=== PATIENT | female | born 1990 | race Caucasian/White ===

== ENCOUNTER 2023-10-29 13:11 | Inpatient (IN) | payer BC, SELFPAY ==
[2023-10-29] VITALS (28 sets, daily range): BP systolic 97–147; BP diastolic 57–95; PULSE 63–107; RESP 16; TEMP 36.8–36.9; O2SAT 96–99; BMI 34.3
--- NOTE | 2023-10-29 13:33 | PM.OBHPAP1 ---
OB - H&P; HPI Antepartum History of Present Illness Time Seen by Provider: 13:34 Date Seen: 10/29/23 Chief complaint: Postdates 41.1 weeks Narrative: Romy Willard is a 33 year old female who presents for post-dates induction of labor. History of Present Dating criteria: based on LMP (consistent with 8 week ultrasound) care: good care Ultrasounds: normal 1st trimester US and normal mid trimester US
--- NOTE | 2023-10-29 13:40 | PM.OBHPLI ---
OB - H&P: HPI Labor/Induction History of Present Illness Time Seen by Provider: 13:40 Date Seen: 10/29/23 Chief Complaint: The patient is a 33 year old 2 para 1 at 41 weeks gestation by LMP and consistent with 8 week ultrasound, who presents with IOL for postdates. Chief complaint: Postdates 41.1 weeks : 2 Para: 1 Date of last menstrual period: 01/15/23 Estimated date of delivery: 10/22/23 Gestational age based on last menstrual period: 41 Narrative: Romy Willard is a 33 year old female who presents for IOL for postdates. She is 41 weeks gestation. She has felt well. No concerns. Handy score last week was 6 3cm/50%/-2/soft/posterior History of Present Dating criteria: based on LMP (consistent with 8 week ultrasound) care: good care Ultrasounds: normal 1st trimester US and normal mid trimester US (did have repeat ultrasound for visualization of spine) Medical complications: none Labs Blood type: O (+) positive Rubella: immune RPR/VDLR: nonreactive GBS status: negative HBsAG: negative Review of Systems Status of ROS: Reports: 10 or more systems reviewed and unremarkable except as noted in History and below OB - H&P: Exam Physical Exam: Vital signs: Pulse BP 87 118/76 10/29/23 13:37 10/29/23 13:37 Constitutional: Constitutional: no acute distress Routine HEENT Exam: Head: Present atraumatic and normal inspection ENT: Present mucous membranes moist Routine Neck Exam: Neck: Present full ROM Detailed Neck Exam: Thyroids: Thyroid: Present normal Routine Chest/Breast/Axilla Exam: Chest wall: Absent tenderness Routine Respiratory Exam: Respiratory: Present CTA bilaterally; Absent crackles or rales Routine Cardiovascular Exam: Cardiovascular: RRR, S1 and S2 Detailed Labor and Delivery Exam: Patient Gravid: Yes Cervical ripeness score: 6 Fetus (Single): Amniotic Membrane Status: intact Heart Rate Baseline: 135 Monitor Accelerations: Present Monitor Decelerations: None 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 Handy score 6, will proceed with pitocin/AROM if needed. Status: Acute Plan - anticipate - Desires epidural, may receive as desired. - Planning bottle feeding - Baby MD: Kenji Delivery/Labor/Induction Plan Plan: induction Induction method: per pitocin protocol
[2023-10-29 14:10] LABS: Basophils Absolute Auto 0.02 K/uL (0.00-0.30); Basophils Percent Auto 0.3 % (0.0-3.0); Eosinophils Absolute Auto 0.11 K/uL (0.00-0.50); Eosinophils Percent Auto 1.6 % (0.0-7.0); Hematocrit 34.4 % (33.0-51.0); Hemoglobin* 11.5 gm/dL (12.0-16.0); Immature Granulocytes Abs Auto 0.04 K/uL (0.00-0.30); Immature Granulocytes Pct Auto 0.6 %; Lymphocytes Percent Auto 16.5 % (20-44); Mean Corpuscular HGB Conc 33 gm/dL (32-36); Mean Corpuscular Hemoglobin 26 pg (26-34); Mean Corpuscular Volume 78 fL (80-100); Monocytes Percent Auto 8.2 % (0.0-11.0); Neutrophils Percent Auto 72.8 % (42.0-72.0); Platelet Count* 241 K/uL (140-440); RDW Coefficient of Variation % 14.2 % (11.5-15.5); Red Blood Count 4.42 m/uL (4.00-5.20); White Blood Count* 6.93 K/uL (4.50-11.00)
[2023-10-29 14:11] LABS: Slide Review Reflex No
[2023-10-29] MEDS: OXYTOCIN 30 unit/500 ML in NS 30 UNIT/500 ML BAG IVPB ×2 (14:47→15:03)
[2023-10-29] MEDS: LACTATED RINGERS 1000 ML 1,000 ML 125 ML IV ×2 (14:47→21:34)
--- NOTE | 2023-10-29 19:48 | PM.OBPNL ---
Subjective Time Seen by Provider: 19:48 Date Seen: 10/29/23 Narrative: Patient is having more contractions, uncomfortable, but not painful. 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
[2023-10-29] MEDS: LIDOCAINE 2% (PF) 5 ML VIAL EPIDURAL (20:44)
[2023-10-29] MEDS: ROPIVACAINE 0.2% 100 ml 100 ML 12 MG EPIDURAL (20:44)
--- NOTE | 2023-10-29 20:52 | P.ANBPRC_ITS ---
PFSH PFSH Social History What is your current living situation?: I presently have a place to live Problems where you live: no known problems In the past 12 months, utilities in danger of being shut off: no In past 12 months, lack of transportation kept you from medical appts, meetings, work, or getting things needed for daily living: no In the past 12 mos, have been you worried that your food would run out before you had money to buy more?: never true In the past 12 mos, the food you bought just didn't last and you didn't have money to buy more?: never true Smoking Status: Never smoker How often does anyone, including family, friends and others, physically hurt you : never How often does anyone, including family, friends and others, insult or talk down to you: never How often does anyone, including family, friends and others, threaten you with harm: never How often does anyone, including family, friends and others, scream or curse at you: never Meds Home Medications and Allergies Home Medications Medication Instructions Recorded Confirmed Type loratadine-pseudoephedrine ER 10 1 tab PO DAILY 10/29/23 10/29/23 History mg-240 mg tablet,extended [id number] (Claritin-D 24 Hour) omeprazole 20 mg capsule,delayed 20 mg PO DAILY 10/29/23 10/29/23 History release 17-iron(35 mg-5 mg)-folic cap PO 10/29/23 History acid 1.2 mg-fish oil 400 mg capsule Allergies Allergy/AdvReac Type Severity Reaction Status Date / Time No Known Drug Allergies Allergy Verified 10/29/23 14:43 Results Labs Labs: Laboratory Results - last 24 hr 10/29/23 14:02 WBC 6.93 RBC 4.42 Hgb 11.5 L Hct 34.4 MCV 78 L MCH 26 MCHC 33 RDW Coeff of Rafat 14.2 Plt Count 241 Neut % (Auto) 72.8 H Lymph % (Auto) 16.5 L [place] % (Auto) 8.2 Eos % (Auto) 1.6 Baso % (Auto) 0.3 Neut # (Auto) 5.00 Lymph # (Auto) 1.10 [place] # (Auto) 0.60 Eos # (Auto) 0.11 Baso # (Auto) 0.02 Abs Immat Gran (auto) 0.04 Imm/Tot Granulo (auto) 0.6 Blood Type O Positive Antibody Screen NEGATIVE Vital Signs Vital Signs: Last Vital Signs Temp 98.3 F 10/29/23 19:45 Pulse 93 10/29/23 20:49 Resp 16 10/29/23 19:45 BP 136/72 10/29/23 20:49 Pulse Ox 96 10/29/23 20:46 Weight: 87.997 kg Height: 160.02 cm Anesthesia Procedures Epidural Insertion Patient Location: OB Start Time: 20:20 Stop Time: 20:52 Start Date: 10/29/23 Stop Date: 10/29/23 Reason for Block: procedure for pain Patient Position: sitting Performed By: Tom Gonzalez Preanesthetic Checklist: IV checked, risks and benefits discussed, surgical consent, monitors and equipment checked, pre-op evaluation, timeout performed and anesthesia consent Prep: chlorhexidine gluconate Monitoring: blood pressure monitoring, continuous pulse oximetry and heart rate Approach: midline Vertebral Space: lumbar (1-5) Epidural Technique: MIGUEL ANGEL air Needle Type: Tuohy needle Injection Technique: continuous catheter Needle gauge: 17 Needle Length (cm): 10 cm Needle Insertion Depth (cm): 7 Catheter Gauge: 19 Catheter Type: multi-orifice Catheter at skin depth (cm): 13 Test Dose Result: negative and lidocaine 1.5% with epinephrine 1 to 200,000
--- NOTE | 2023-10-29 20:54 | PM.OBPNL ---
Subjective Time Seen by Provider: 20:54 Date Seen: 10/29/23 Narrative: Patient is very uncomfortable after AROM. Objective Exam: very uncomfortable with contractions. 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
--- NOTE | 2023-10-29 22:41 | PM.OBPNL ---
Subjective Time Seen by Provider: 22:41 Date Seen: 10/29/23 Narrative: Feeling more shaky and more pelvic pressure Objective Vital Signs: Last Vital Signs Temp 98.4 F 10/29/23 22:33 Pulse 100 10/29/23 22:37 Resp 16 10/29/23 22:33 BP 112/71 10/29/23 22:37 Pulse Ox 96 10/29/23 20:46 Pelvic Exam Dilation (cm): 8-9 Effacement (%): 90 Station: 0 Contractions Monitor mode: External Contraction Frequency: 3-4 Contraction pattern: Regular Contraction intensity: Strong/Firm Pitocin Rate (mU/min): 2 Assessment Assessment: active labor Station: 0 Amniotic Membrane Status: AROM (clear fluid) Status: Category l Heart Rate Baseline: 135 [facility] Variability: Moderate (6-25) Monitor Accelerations: Present Monitor Decelerations: None Labor Progress: progressing well Plan Plan: - ongoing IOL - anticipate
[2023-10-29] MEDS: LIDOCAINE 1 % PF 30 ML INJECTION (23:45)
[2023-10-30] VITALS (22 sets, daily range): BP systolic 110–166; BP diastolic 66–84; PULSE 65–92; RESP 15–18; TEMP 36.4–37.1; O2SAT 95–99
--- NOTE | 2023-10-30 00:01 | W.PM.OBVAGDE ---
OB Procedure Vag Delivery Mother Details Mother Details: The patient is a 33 year-old, 2, Para 1 admitted on 10/29/23 at 41.0 Days gestation. : 2 Para: 1 Weeks Gestation: 41.0 Admission Date: 10/29/23 Additional Details Amniotic Membrane Status: AROM Amniotic Membrane Rupture Date: 10/29/23 Amniotic Membrane Rupture Time: 19:41 Amniotic Membrane Fluid Description: Clear Analgesia/Anesthesia Type: Epidural Waterbirth: No Pitcoin: Yes Intrapartal Events: Labor Induction Induction Method: per pitocin protocol and AROM Labor Onset: 19:45 Complete: 23:18 Pushin:24 Heart: heart tones during second stage were category 1. Did have bradycardia to 90 in last 2 pushes Delivery Details Delivery Date: 10/29/23 Delivery Time: 23:35 Route of delivery: Infant Gender: Male Infant Viability: Alive; Heart Rate Present Position at Delivery: OA Delivery Details: Patient was admitted for IOL for postdates. Pitocin was started and patient progressed to regular contractions. AROM of clear fluid was performed. Patient's labor occurred shortly thereafter and she requested epidural. She had good response from Epidural. Patient progressed well becoming complete at 2318. Began pushing and pushed very efficiently. Delivered over intact perineum via spontaneous vaginal delivery. was placed on maternal abdomen.? Cord was clamped and cut after a 30 second delay by father of baby who was in attendance. Nose and mouth were bulb suctioned.? Infant weight pending. 1 Minute Interval Total Score: 8 5 Minute Interval Total Score: 9 Additional Details Shoulder Dystocia: No Placenta Delivery Time: 23:43 Placental Delivery Description: Spontaneous Delivery repair: Vicryl Procedure Done: Global Blood Loss: 100 Laceration: Perineal - 2nd Degree Episiotomy Description: None Blood Loss Measurement Type: QBL Bakri Used: No Sponge/Need Count Correct: Yes Cord Vessel Description: 3 Vessels Event Summary Status: Mother and were stable after delivery. Disposition: no change
--- NOTE | 2023-10-30 00:37 | P.OBPN_ITS ---
OB - PN:Subj Subjective Time Seen by Provider: 00:37 Date Seen: 10/30/23 Interval history: Patient feels well. Patient comments OB post-: no complaints and pain well controlled [place] status: bottle OB - PN: Obj Exam Physical Exam: Vital signs: Temp Pulse Resp BP Pulse Ox 98.4 F 77 16 120/66 96 10/29/23 22:33 10/30/23 00:30 10/29/23 22:33 10/30/23 00:30 10/29/23 20:46 Constitutional: Constitutional: no acute distress Routine HEENT Exam: Head: Present atraumatic Routine Abdominal Exam: Fundus: Present firm Routine Exam: External: Present swelling Routine Extremities Exam: Extremities: Absent calf tenderness Routine Back/Spine/Pelvis Exam: Back/Spine: Present full ROM Routine Neurological Exam: Neurological: Present alert and oriented X3 Routine Psychiatric Exam: Psychiatric: Present normal affect OB - PN: Obj Data Labs Labs: Laboratory Results - last 24 hr 10/29/23 14:02 WBC 6.93 RBC 4.42 Hgb 11.5 L Hct 34.4 MCV 78 L MCH 26 MCHC 33 RDW Coeff of Rafat 14.2 Plt Count 241 Neut % (Auto) 72.8 H Lymph % (Auto) 16.5 L [place] % (Auto) 8.2 Eos % (Auto) 1.6 Baso % (Auto) 0.3 Neut # (Auto) 5.00 Lymph # (Auto) 1.10 [place] # (Auto) 0.60 Eos # (Auto) 0.11 Baso # (Auto) 0.02 Abs Immat Gran (auto) 0.04 Imm/Tot Granulo (auto) 0.6 Blood Type O Positive Antibody Screen NEGATIVE OB - PN: A/P Delivery Assessment and Plan (1) Post-dates : Problem details: Induced for postdates Status: Acute (2) (normal spontaneous vaginal delivery): Problem details: Had after IOL Status: Acute Plan - Had 2 elevated BPs in setting of shaking prior to delivery. Nursing feels these were not accurate (immediate recheck were within normal limits). None of the readings were treatable (both just over 140/90). Will monitor. If another bp >140/90 will call and do labs. NO symptoms of preeclampsia. Doing well. Plan day: 1 Plan: routine care
[2023-10-30] MEDS: IBUPROFEN 600 MG TABLET PO ×3 (00:43→21:25)
[2023-10-30 05:27] LABS: Basophils Percent Auto 0.1 % (0.0-3.0); Eosinophils Percent Auto 0.1 % (0.0-7.0); Hematocrit 32.9 % (33.0-51.0); Hemoglobin* 10.9 gm/dL (12.0-16.0); Immature Granulocytes Pct Auto 0.3 %; Lymphocytes Percent Auto 7.7 % (20-44); Mean Corpuscular HGB Conc 33 gm/dL (32-36); Mean Corpuscular Hemoglobin 26 pg (26-34); Mean Corpuscular Volume 78 fL (80-100); Monocytes Percent Auto 8.1 % (0.0-11.0); Neutrophils Percent Auto 83.7 % (42.0-72.0); Platelet Count* 222 K/uL (140-440); RDW Coefficient of Variation % 14.3 % (11.5-15.5); Red Blood Count 4.21 m/uL (4.00-5.20); White Blood Count* 13.83 K/uL (4.50-11.00)
[2023-10-30 05:34] LABS: Slide Review Reflex No
[2023-10-30 05:42] LABS: Aspartate Amino Transferase* 61 U/L (12-35)
[2023-10-30 05:43] LABS: Alanine Aminotransferase* 17 U/L (4-35); Blood Urea Nitrogen* 13 mg/dL (5-24)
[2023-10-30 05:57] LABS: Creatine Kinase* 198 U/L (41-117)
[2023-10-30] MEDS: ACETAMINOPHEN 500 MG TABLET 1000 MG PO (06:17)
[2023-10-30 07:18] LABS: Creatinine* 0.7 mg/dL (0.5-1.5); Est. Creatinine Clearance* 95.44; Estimated Glomerular Filt Rate 118 ml/min
--- NOTE | 2023-10-30 07:30 | PM.OBPNVD1 ---
OB - PN:Subj Subjective Time Seen by Provider: 07:00 Date Seen: 10/30/23 Interval history: Patient feels well. Had at 1135pm last night. Reports she is ambulating, voiding and stooling without difficulty. Lochia mild. No concerns. Bottlefeeding. No headache or vision changes. pt denies pain. Patient comments OB post-: no complaints and tolerating diet [place] infant status: bottle OB - PN: Obj Exam Physical Exam: Vital signs: Temp Pulse Resp BP Pulse Ox O2 Del Method 98.3 F 83 17 125/80 96 Room Air 10/30/23 06:10 10/30/23 06:10 10/30/23 06:10 10/30/23 06:10 10/29/23 20:46 10/30/23 06:10 Constitutional: Constitutional: no acute distress and cooperative Routine HEENT Exam: Head: Present normal inspection Eye: Present normal appearance ENT: Present mucous membranes moist Routine Abdominal Exam: Fundus: Present firm (at umbilicus) Routine Neurological Exam: Neurological: Present alert Routine Psychiatric Exam: Psychiatric: Present normal affect, normal thought process and good insight OB - PN: Obj Data Labs Labs: Laboratory Results - last 24 hr 10/29/23 10/30/23 14:02 05:20 WBC 6.93 13.83 H RBC 4.42 4.21 Hgb 11.5 L 10.9 L Hct 34.4 32.9 L MCV 78 L 78 L MCH 26 26 MCHC 33 33 RDW Coeff of Rafat 14.2 14.3 Plt Count 241 222 Neut % (Auto) 72.8 H 83.7 H Lymph % (Auto) 16.5 L 7.7 L [place] % (Auto) 8.2 8.1 Eos % (Auto) 1.6 0.1 Baso % (Auto) 0.3 0.1 Neut # (Auto) 5.00 11.60 H Lymph # (Auto) 1.10 1.10 [place] # (Auto) 0.60 1.10 H Eos # (Auto) 0.11 0.00 Baso # (Auto) 0.02 0.00 Abs Immat Gran (auto) 0.04 0.00 Imm/Tot Granulo (auto) 0.6 0.3 BUN 13 Creatinine 0.7 Estimated Creat Clear 95.44 Estimated GFR 118 AST 61 H ALT 17 Total Creatine Kinase 198 H Blood Type O Positive Antibody Screen NEGATIVE OB - PN: A/P Delivery Assessment and Plan (1) Post-dates : Problem details: Induced for postdates Status: Acute (2) (normal spontaneous vaginal delivery): Problem details: Had after IOL Status: Acute (3) Elevated blood pressure reading: Problem details: BP 2551=303/61 just before epidural, recheck 137/83. Shortly after delivery when shaking bp cuff 166/77, repeated 1 min later 135/74 so initial though inaccurate due to shaking. 10/30/23 0200 146/78 Status: Acute Assessment and Plan: Technically 2 elevated bp's as above (disregard 166 as inaccurate) and first elevated bp was right before epidural. Most recent improved. Plan to monitor bp closely. Initial PIH labs with AST 61 just below double limit normal. Pt feels well and asymptomatic. Plan repeat labs 6 hours from initial PIH labs. Discussed with pt next steps depend on how she is feeling, bp and lab followup. All ?'s answered. (4) Elevated AST (SGOT): Status: Acute Assessment and Plan: see above
--- NOTE | 2023-10-30 10:12 | PM.ANPOST ---
Post Anesthesia Note Post Anesthesia Note Patient seen: Inpatient Respiratory Status: adequate Cardiovascular Status: adequate Mental Status: baseline Pain: adequate Temp: baseline Anesthetic awareness: N/A Complications: none Follow care: none
[2023-10-30 11:53] LABS: Platelet Count* 241 K/uL (140-440)
[2023-10-30 12:09] LABS: Alanine Aminotransferase* 17 U/L (4-35); Aspartate Amino Transferase* 76 U/L (12-35); Creatinine* 0.7 mg/dL (0.5-1.5); Est. Creatinine Clearance* 95.44; Estimated Glomerular Filt Rate 118 ml/min
[2023-10-30] MEDS: LACTATED RINGERS 1000 ML 1,000 ML 75 ML IV ×2 (13:10→13:15)
[2023-10-30] MEDS: MAGNESIUM IV 4 GM/100 ML PIGGYBACK IVPB (13:12)
[2023-10-30] MEDS: MAGNESIUM Infusion 40 GM/1,000 ML IV.SOLN IVPB (13:56)
[2023-10-30 17:31] LABS: Hematocrit 35.7 % (33.0-51.0); Hemoglobin* 11.5 gm/dL (12.0-16.0); Mean Corpuscular HGB Conc 32 gm/dL (32-36); Mean Corpuscular Hemoglobin 26 pg (26-34); Mean Corpuscular Volume 80 fL (80-100); Platelet Count* 246 K/uL (140-440); Red Blood Count 4.48 m/uL (4.00-5.20); White Blood Count* 10.79 K/uL (4.50-11.00)
[2023-10-30 17:34] LABS: Slide Review Reflex No
[2023-10-30 17:59] LABS: Alanine Aminotransferase* 17 U/L (4-35); Aspartate Amino Transferase* 35 U/L (12-35); Blood Urea Nitrogen* 11 mg/dL (5-24); Creatinine* 0.8 mg/dL (0.5-1.5); Est. Creatinine Clearance* 83.51; Estimated Glomerular Filt Rate 100 ml/min
[2023-10-30 18:05] LABS: Magnesium* 4.7 mg/dL (1.5-2.6)
[2023-10-30 23:34] LABS: Hematocrit 33.6 % (33.0-51.0); Mean Corpuscular HGB Conc 33 gm/dL (32-36); Mean Corpuscular Hemoglobin 26 pg (26-34); Mean Corpuscular Volume 79 fL (80-100); Platelet Count* 232 K/uL (140-440); Red Blood Count 4.24 m/uL (4.00-5.20); White Blood Count* 9.77 K/uL (4.50-11.00)
[2023-10-30 23:38] LABS: Slide Review Reflex No
[2023-10-30 23:50] LABS: Alanine Aminotransferase* 17 U/L (4-35); Aspartate Amino Transferase* 32 U/L (12-35); Blood Urea Nitrogen* 11 mg/dL (5-24); Creatinine* 0.7 mg/dL (0.5-1.5); Est. Creatinine Clearance* 95.44; Estimated Glomerular Filt Rate 118 ml/min
[2023-10-30 23:58] LABS: Magnesium* 5.3 mg/dL (1.5-2.6)
[2023-10-31] MEDS: LACTATED RINGERS 1000 ML 1,000 ML 75 ML IV (02:01)
[2023-10-31 02:03] VITALS: BP 117/78; PULSE 84; RESP 16; O2SAT 98
[2023-10-31 05:04] VITALS: BP 123/81; PULSE 86; RESP 16; TEMP 36.6; O2SAT 96
[2023-10-31 05:42] LABS: Hematocrit 33.2 % (33.0-51.0); Hemoglobin* 10.9 gm/dL (12.0-16.0); Mean Corpuscular HGB Conc 33 gm/dL (32-36); Mean Corpuscular Hemoglobin 26 pg (26-34); Mean Corpuscular Volume 79 fL (80-100); Platelet Count* 213 K/uL (140-440); Red Blood Count 4.21 m/uL (4.00-5.20); White Blood Count* 8.46 K/uL (4.50-11.00)
[2023-10-31 05:46] LABS: Slide Review Reflex No
[2023-10-31 05:56] LABS: Alanine Aminotransferase* 17 U/L (4-35); Aspartate Amino Transferase* 33 U/L (12-35); Blood Urea Nitrogen* 9 mg/dL (5-24); Creatinine* 0.7 mg/dL (0.5-1.5); Est. Creatinine Clearance* 95.44; Estimated Glomerular Filt Rate 118 ml/min
[2023-10-31] MEDS: MAGNESIUM Infusion 40 GM/1,000 ML IV.SOLN IVPB (07:16)
[2023-10-31 07:20] VITALS: BP 127/85; PULSE 84; RESP 16; TEMP 36.5
--- NOTE | 2023-10-31 07:31 | P.OBPN_ITS ---
OB - PN:Subj Subjective Date Seen: 10/31/23 Interval history: Seen today on PP day 2. Patient feels well. Had at 1135pm on 10/28. Patient had elevated liver enzymes and was started on magnesium at 1315 on 10/29, will need to remain in hospital until 10/31 1315. Liver enzymes have normalized and patient feels well. Reports she is ambulating, voiding and stooling without difficulty. Lochia mild. No concerns. Bottle feeding. No headache or vision changes. pt denies pain. OB - PN: Obj Exam Physical Exam: Vital signs: Temp Pulse Resp BP Pulse Ox O2 Del Method 97.7 F 84 16 127/85 96 Room Air 10/31/23 07:20 10/31/23 07:20 10/31/23 07:20 10/31/23 07:20 10/31/23 05:04 10/31/23 05:04 Narrative: Gen: NAD CV: RRR, normal S1,S2, no murmurs Resp: normal rate and effort, clear to auscultation Abd: Soft, uterus firm and nontender at below umbilicus Ext: Warm, dry, 2+ pedal pulses, no edema b/l. Calves non-tender to palpation. Mood: Appropriate OB - PN: Obj Data Labs Labs: Laboratory Results - last 24 hr 10/30/23 10/30/23 10/30/23 11:49 17:26 23:25 WBC 10.79 9.77 RBC 4.48 4.24 Hgb 11.5 L 11.0 L Hct 35.7 33.6 MCV 80 79 L MCH 26 26 MCHC 32 33 Plt Count 241 246 232 BUN 11 11 Creatinine 0.7 0.8 0.7 Estimated Creat Clear 95.44 83.51 95.44 Estimated GFR 118 100 118 Magnesium 4.7 H* 5.3 H* AST 76 H 35 32 ALT 17 17 17 10/31/23 05:34 WBC 8.46 RBC 4.21 Hgb 10.9 L Hct 33.2 MCV 79 L MCH 26 MCHC 33 Plt Count 213 BUN 9 Creatinine 0.7 Estimated Creat Clear 95.44 Estimated GFR 118 Magnesium 6.0 H* AST 33 ALT 17 OB - PN: A/P Delivery Assessment and Plan (1) Post-dates : Problem details: Induced for postdates Status: Acute (2) (normal spontaneous vaginal delivery): Problem details: Had after IOL Status: Acute (3) Elevated blood pressure reading: Problem details: BP 147/61 just before epidural, recheck 137/83. Shortly after delivery when sh aking bp cuff 166/77, repeated 1 min later 135/74 so initial though inaccurate due to shaking. 10/30/23 0200 146/78 Status: Acute (4) Elevated AST (SGOT): Status: Acute (5) Pre-eclampsia, : Problem details: Elevated BP and liver enzymes, mag for 24 hours, liver enzymes normalized, patient did well. Status: Acute Plan Comments: PPD#2 s/p uncomplicated , developed preeclampsia (elevated BP and liver enzymes) required magnesium, doing well. Plan: -- Continue current cares. -- Encourage ambulation. -- Colace for constipation prophylaxis. -- Advised that nothing per vagina for 6 weeks or until one week after bleeding stops. -- Symptoms of post depression discussed. -- Anticipate discharge to home on 10/31. Follow up with PCP in 4-6 weeks, or sooner if concerned.
[2023-10-31 11:19] LABS: Hematocrit 36.3 % (33.0-51.0); Hemoglobin* 11.9 gm/dL (12.0-16.0); Mean Corpuscular HGB Conc 33 gm/dL (32-36); Mean Corpuscular Hemoglobin 26 pg (26-34); Mean Corpuscular Volume 79 fL (80-100); Platelet Count* 259 K/uL (140-440); White Blood Count* 7.83 K/uL (4.50-11.00)
[2023-10-31 11:32] LABS: Slide Review Reflex No
[2023-10-31] MEDS: IBUPROFEN 600 MG TABLET PO ×2 (11:42→19:54)
[2023-10-31 11:43] LABS: Creatinine* 0.6 mg/dL (0.5-1.5); Est. Creatinine Clearance* 111.35; Estimated Glomerular Filt Rate 122 ml/min
[2023-10-31 11:44] LABS: Alanine Aminotransferase* 19 U/L (4-35); Aspartate Amino Transferase* 37 U/L (12-35); Blood Urea Nitrogen* 7 mg/dL (5-24)
[2023-10-31 11:47] LABS: Magnesium* 6.3 mg/dL (1.5-2.6)
[2023-10-31 13:30] VITALS: BP 128/86; PULSE 85; RESP 16; TEMP 36.6; O2SAT 96
[2023-10-31 19:47] VITALS: BP 131/83; PULSE 85; RESP 18; TEMP 36.9; O2SAT 96
[2023-10-31 19:51] LABS: Creatinine* 0.8 mg/dL (0.5-1.5); Est. Creatinine Clearance* 83.51; Estimated Glomerular Filt Rate 100 ml/min
[2023-10-31 19:52] LABS: Alanine Aminotransferase* 20 U/L (4-35); Aspartate Amino Transferase* 34 U/L (12-35)
[2023-10-31 21:31] LABS: Total Protein Urine 22 mg/dL
[2023-10-31 21:32] LABS: Creatinine Urine 104.8 mg/dL
[2023-11-01 00:25] LABS: Rapid Plasma Reagin (RPR) Non Reactive (Non Reactive)
[2023-11-01 00:37] VITALS: BP 127/78; PULSE 85; RESP 16; TEMP 36.7; O2SAT 98
[2023-11-01 03:21] VITALS: BP 127/80; PULSE 53; RESP 16; TEMP 36.7; O2SAT 97
[2023-11-01 05:31] LABS: Basophils Absolute Auto 0.02 K/uL (0.00-0.30); Basophils Percent Auto 0.3 % (0.0-3.0); Eosinophils Absolute Auto 0.14 K/uL (0.00-0.50); Eosinophils Percent Auto 2.1 % (0.0-7.0); Hematocrit 33.4 % (33.0-51.0); Hemoglobin* 10.8 gm/dL (12.0-16.0); Immature Granulocytes Abs Auto 0.02 K/uL (0.00-0.30); Immature Granulocytes Pct Auto 0.3 %; Lymphocytes Absolute Auto 1.39 K/uL (0.90-2.90); Lymphocytes Percent Auto 20.5 % (20-44); Mean Corpuscular HGB Conc 32 gm/dL (32-36); Mean Corpuscular Hemoglobin 26 pg (26-34); Mean Corpuscular Volume 79 fL (80-100); Neutrophils Absolute Auto 4.66 K/uL (1.7-7.0); Neutrophils Percent Auto 68.8 % (42.0-72.0); Platelet Count* 249 K/uL (140-440); RDW Coefficient of Variation % 14.6 % (11.5-15.5); Red Blood Count 4.21 m/uL (4.00-5.20); White Blood Count* 6.77 K/uL (4.50-11.00)
[2023-11-01 05:34] LABS: Slide Review Reflex No
[2023-11-01 05:47] LABS: Alanine Aminotransferase* 18 U/L (4-35); Aspartate Amino Transferase* 32 U/L (12-35); Blood Urea Nitrogen* 12 mg/dL (5-24); Creatinine* 0.8 mg/dL (0.5-1.5); Est. Creatinine Clearance* 83.51; Estimated Glomerular Filt Rate 100 ml/min
[2023-11-01 07:45] VITALS: BP 120/76; PULSE 63; RESP 16; TEMP 36.9; O2SAT 96
--- NOTE | 2023-11-01 08:11 | PM.OBDSVD1 ---
DS: Providers Provider Time Seen by Provider: 08:11 Date Seen: 11/01/23 Date of admission: 10/29/23 13:11 Primary care physician: Sonia Phillip MD Admitting Clinician: Sonia Phillip MD Attending Physician on discharge: Sonia Phillip MD Date of Discharge: 11/01/23 DS: Diagnosis Discharge Diagnosis (1) Pre-eclampsia, : Status: Acute Problem details: Elevated BP and liver enzymes, mag for 24 hours, liver enzymes normalized, patient did well. Did not require antihypertensive medication (2) (normal spontaneous vaginal delivery): Status: Acute Problem details: Had after IOL Exam Const: Vital Signs, click to edit/add: Vital Signs - 24 hr 10/31/23 13:30 10/31/23 19:47 11/01/23 00:37 Temperature 97.8 F 98.4 F 98.0 F Pulse Rate [Blood Pressure Cuff] 85 85 85 Respiratory Rate 16 18 16 Blood Pressure [Ri ght Arm] 128/86 131/83 127/78 Pulse Oximetry 96 96 98 Oxygen Delivery Me thod Room Air Room Air Room Air 11/01/23 03:21 11/01/23 07:45 Temperature 98.1 F 98.5 F Pulse Rate [Blood Pressure Cuff] 53 L 63 Respiratory Rate 16 16 Blood Pressure [Ri ght Arm] 127/80 120/76 Pulse Oximetry 97 96 Oxygen Delivery Me thod Room Air Room Air Documenting provider has reviewed patient's vital signs: yes Common normals: no apparent distress HENMT: Common normals: normocephalic Head and scalp: normocephalic Eye: General eye: normal appearance of both eyes Neck & C-Spine: Common normals: full ROM Resp: Common normals: normal respiratory effort and clear to auscultation bilaterally Auscultation: clear to auscultation bilaterally Cardio: Common normals: regular rate, regular rhythm and no murmurs Rate: regular rate Rhythm: regular rhythm GI: Common normals: soft to palpation Palpation: soft Extremity: Common normals: no pedal edema OB - DS: Summary Hospital Course Hospital Course: The patient is a 33 year old G 2 P 1 at 41 weeks gestation that was admitted to the Center on 10/29/23 for IOL for post dates. She had an uncomplicated vaginal delivery. She delivered a viable male infant. She is bottle feeding. During labor patient developed gestational hypertension. Unfortunately, liver enzymes increased to 2 x upper limit of normal, moving diagnosis to preeclampsia with severe features. Magnesium was started x 24 hours. Blood pressure normalized, not requiring any antihypertensives. Magnesium was discontinued and patient was monitored for additional 24 hours. Patient had no symptoms of preeclampsia. Peripartum Data Infant delivery method: Vaginal Laceration description: Perineal - 2nd Degree complications: none [place] Infant Gender: Male Discharge Plan: Home Status at Discharge Functional status at discharge: independent ambulation Overall status at discharge: patient is back to baseline Time Spent with Patient Time attestation: Total time spent providing and/or coordinating discharge services: Time spent: Less than 30 minutes Discharge Plan Discharge Disposition: Home, Self-Care Date of Admission: 10/29/23 13:11 Attending Provider on Discharge: Sonia Phillip Primary Care Provider: Sonia Phillip Condition: Improved Anticipated Discharge Date/Time: 11/01/23 13:15 Discharge Medications: Continued omeprazole 20 mg capsule,delayed release(DR/EC) 20 mg PO DAILY prenat vit 21-[id number],6 35-5-1.2-400 mg capsule 1 cap PO DAILY Claritin-D 24 Hour 10-240 mg tablet extended release 24 hr 1 tab PO DAILY Discharge Orders: Discharge Order (Routine); Ordered 11/01/23 Ordered By: Sonia Phillip Patient Education: Vaginal Delivery (GEN) Activity Level: Activity as Tolerated Activity Detail: Pelvic rest x 6 weeks Discharge Diet: Regular Follow Up Appointments: Sonia Phillip MD [Primary Care Provider] - () Forms: VocalizeLocal Info Instructions
[2023-11-01 11:54] VITALS: BP 113/71; PULSE 77; RESP 18; TEMP 37.3; O2SAT 96
== END 2023-11-01 12:55 | disposition home or self-care (01) | DRG 560 ==
PROVIDERS: Family Medicine; Student in an Organized Health Care Education/Training Program; Admitting Provider Family Medicine; PCP Family Medicine; Visit Provider Family Medicine
DX: O14.95 Unspecified pre-eclampsia, complicating the puerperium (principal); O70.1 Second degree perineal laceration during delivery; Z3A.41 41 weeks gestation of pregnancy; Z37.0 Single live birth; O16.4 Unspecified maternal hypertension, complicating childbirth; O90.89 Other complications of the puerperium, not elsewhere classified; R74.01 Elevation of levels of liver transaminase levels
CPT/HCPCS: 1967; 36415; 76815; 82550; 82565; 82570; 83735; 84156; 84450; 84460; 84520; 85018; 85025; 85027; 85049; 86592; 86850; 86900; 86901; A9270; J2001; J2371; J2795; J3475; J7120